=== PATIENT | male | born 1965 | race African-American/Black ===

== ENCOUNTER 2018-01-14 15:36 | Inpatient (IN) ==
[2018-01-14] MEDS ORDERED: PANTOPRAZOLE 40 MG VIAL IV STA (16:26)
[2018-01-14 16:43] LABS: Basophils % 0.3 % (0.0-0.8); Eosinophils # 0.4 10*3/uL (0.0-0.87); Eosinophils % 3.3 % (0.00-10.9); Hematocrit 38.9 VOL% (42.0-52.0); Hemoglobin 12.2 GM/DL (14.0-18.0); Immature Granulocytes % 0.3 %; Immature Granulocytes Absolute 0.03 #; Lymphocytes # 2.3 10*3/uL (1.4-4.0); Lymphocytes % 22.1 % (21.2-54.2); Mean Corpuscular HGB Conc 31.4 GM/DL (32-36); Mean Corpuscular Hemoglobin 26 PG (27-34); Mean Corpuscular Volume 84.2 FL (87-102); Mean Platelet Volume 10.3 FL (9.6-12.0); Monocytes # 0.6 10*3/uL (0.11-0.8); Monocytes % 5.3 % (1.7-12.7); Neutrophils # 7.2 10*3/uL (1.4-7.4); Neutrophils % 68.7 % (38.7-73.9); Platelet Count 329 T/CUMM (130-400); Red Blood Count 4.62 MC/CUMM (3.8-5.5); Red Cell Distribution Width 15.7 % (9.3-17.3); White Blood Count 10.5 T/CUMM (4-12)
[2018-01-14 16:52] LABS: PT Patient Result 10.1 SECS
[2018-01-14 17:03] LABS: Alanine Aminotransferase 22 U/L (16-61); Albumin 3.2 G/DL (3.4-5.0); Alkaline Phosphatase 63 U/L (45-117); Aspartate Amino Transferase 15 U/L (0-37); Bilirubin,Total < 0.39 MG/DL (0.2-1.0); Blood Urea Nitrogen 12 MG/DL (7-18); Calcium 8.5 MG/DL (8.5-10.1); Glucose 98 MG/DL (74-106); Osmolality,Calculated 278.4 MOS/KG (273-304); Potassium 3.7 MMOL/L (3.5-5.1); Sodium 140 MMOL/L (136-145); Total Protein 7.7 G/DL (6.4-8.3)
[2018-01-14] MEDS ORDERED: methylPREDNISolone SOD SUC 125 MG/2 ML VIAL ONE (18:09)
[2018-01-14] MEDS ORDERED: diphenhydrAMINE 50 MG/1 ML VIAL ONE (18:09)
[2018-01-14] MEDS ORDERED: diphenhydrAMINE 50 MG/1 ML VIAL IV STA (18:22)
[2018-01-14] MEDS ORDERED: FAMOTIDINE 20 MG/2 ML VIAL IV STA (18:23)
[2018-01-14] MEDS ORDERED: methylPREDNISolone SOD SUC 125 MG/2 ML VIAL IV STA (19:16)
[2018-01-14] MEDS ORDERED: ONDANSETRON 4 MG/2 ML VIAL IV PRN (19:16)
[2018-01-14] MEDS ORDERED: ACETAMINOPHEN 325 MG TABLET PO PRN (19:16)
[2018-01-14] MEDS: DOCUSATE SODIUM 100 MG CAPSULE PO SCH (20:28)
[2018-01-14] MEDS: SODIUM CHLORIDE 0.9% 1,000 ML IV SCH (20:30)
[2018-01-14] MEDS: cloNIDine 0.1 MG TABLET PO SCH (20:30)
[2018-01-15 03:30] LABS: Basophils % 0.1 % (0.0-0.8); Eosinophils % 0.1 % (0.00-10.9); Hematocrit 40.4 VOL% (42.0-52.0); Hemoglobin 12.7 GM/DL (14.0-18.0); Immature Granulocytes % 0.2 %; Immature Granulocytes Absolute 0.02 #; Lymphocytes # 0.7 10*3/uL (1.4-4.0); Lymphocytes % 7.8 % (21.2-54.2); Mean Corpuscular HGB Conc 31.4 GM/DL (32-36); Mean Corpuscular Hemoglobin 26 PG (27-34); Monocytes # 0.1 10*3/uL (0.11-0.8); Monocytes % 0.9 % (1.7-12.7); Neutrophils # 8.4 10*3/uL (1.4-7.4); Neutrophils % 90.9 % (38.7-73.9); Platelet Count 336 T/CUMM (130-400); Red Blood Count 4.81 MC/CUMM (3.8-5.5); Red Cell Distribution Width 15.6 % (9.3-17.3); White Blood Count 9.2 T/CUMM (4-12)
[2018-01-15 03:56] LABS: Band Neutrophils 1 % (0-10); Lymphocytes 7 % (20-55); Segmented Neutrophils 92 % (50-85); Total Cells Counted 100
[2018-01-15 03:57] LABS: Anisocytosis 1+; Platelet Estimate Normal
[2018-01-15] MEDS: SODIUM CHLORIDE 0.9% 1,000 ML IV SCH ×2 (04:35→17:59)
[2018-01-15] MEDS ORDERED: PANTOPRAZOLE 40 MG TABLET PO SCH (09:00)
[2018-01-15] MEDS: CARVEDILOL CR 10 MG CAPSULE PO SCH (11:12)
[2018-01-15] MEDS: FUROSEMIDE 40 MG TABLET PO SCH (11:12)
[2018-01-15] MEDS: HYOSCYAMINE 0.125 MG TABLET PO SCH ×2 (11:12→20:23)
[2018-01-15] MEDS: POTASSIUM CHLORIDE 20 MEQ TABLET PO SCH (11:12)
[2018-01-15] MEDS: DOCUSATE SODIUM 100 MG CAPSULE PO SCH ×2 (11:13→20:23)
[2018-01-15] MEDS: PANTOPRAZOLE 40 MG TABLET PO SCH (20:23)
[2018-01-15] MEDS: cloNIDine 0.1 MG TABLET PO SCH (20:23)
[2018-01-16 08:40] VITALS: BP 121/055
[2018-01-16] MEDS ORDERED: PROPOFOL 200 MG/20 ML VIAL IV ONE (09:10)
[2018-01-16] MEDS ORDERED: ETOMIDATE 40 MG/20 ML VIAL IV ONE (09:11)
[2018-01-16] MEDS: DOCUSATE SODIUM 100 MG CAPSULE PO SCH (09:32)
[2018-01-16] MEDS: POTASSIUM CHLORIDE 20 MEQ TABLET PO SCH (09:32)
[2018-01-16] MEDS: PANTOPRAZOLE 40 MG TABLET PO SCH (09:32)
[2018-01-16] MEDS: HYOSCYAMINE 0.125 MG TABLET PO SCH (09:32)
[2018-01-16] MEDS: FUROSEMIDE 40 MG TABLET PO SCH (09:32)
[2018-01-16] MEDS: CARVEDILOL CR 10 MG CAPSULE PO SCH (09:32)
[2018-01-16] MEDS: SODIUM CHLORIDE 0.9% 1,000 ML IV SCH (14:11)
== END 2018-01-16 13:40 | disposition home or self-care (01) | DRG 384 ==
LOC: N.ED 15:36 → INTOOBSV 17:46 → N.EDINP 17:46 → N.5E 19:01
PROVIDERS: ADMIT Family Medicine; ATTEND Family Medicine